=== PATIENT | male | born 1970 | race Caucasian/White ===

== ENCOUNTER 2023-06-23 02:59 | Inpatient (IN) | payer BC ==
[2023-06-23] MEDS ORDERED: ONDANSETRON 4 MG/2 ML VIAL ONE (03:36)
[2023-06-23] MEDS ORDERED: ACETAMINOPHEN INJECTION 100 ML IVPB ONE (03:36)
[2023-06-23] MEDS: morphine CARPU-JECT 4 MG/1 ML DISP.SYRIN IVPUSH ONE (04:09)
[2023-06-23] MEDS: SODIUM CHLORIDE 0.9% 500 ML INFUS.BAG IV ONE (04:10)
[2023-06-23] MEDS: ACETAMINOPHEN 1000 MG/100 ML BAG IVPB ONE (04:10)
[2023-06-23] MEDS: ONDANSETRON 4 MG/2 ML VIAL IVPUSH ONE (04:10)
[2023-06-23 04:18] LABS: HEMATOCRIT 43.3 % (35.4-49); HEMOGLOBIN 14.6 GM/dL (11.7-16.9); MCH 27.2 pg (25.7-33.7); MCHC 33.6 g/dl (32.0-35.9); MEAN CELL VOLUME 80.7 fl (80-96); MEAN PLT VOLUME 9.2 fl (7.5-11.1); PLATELET COUNT 246 10^3/uL (134-434); RBC 5.37 M/mm3 (4.00-5.60); RDW 12.9 % (11.9-15.9); WHITE BLOOD COUNT 4.8 K/mm3 (4.0-10.0)
[2023-06-23 04:30] LABS: INR 1.09 (0.83-1.09); PROTHROMBIN TIME (PATIENT) 12.3 SEC (9.7-13.0)
[2023-06-23 04:32] LABS: ACTIVATED PTT 26.5 SECONDS (25.2-36.5)
[2023-06-23 04:37] LABS: CHLORIDE 100 mmol/L (98-107); SODIUM 131 mmol/L (136-145)
[2023-06-23 04:39] LABS: CALCIUM 8.6 mg/dL (8.5-10.1)
[2023-06-23 04:40] LABS: ALBUMIN 3.2 g/dl (3.4-5.0); ANION GAP 5 mmol/L (4-13); BLOOD UREA NITROGEN 18.1 mg/dL (7-18); CO2 25 mmol/L (21-32); GLUCOSE,RANDOM 298 mg/dL (74-106); MAGNESIUM 1.7 mg/dL (1.8-2.4)
[2023-06-23 04:42] LABS: CREATININE 1.2 mg/dL (0.55-1.3); SGOT/AST 13 U/L (15-37)
[2023-06-23 04:43] LABS: SGPT/ALT 23 U/L (13-61)
[2023-06-23 04:44] LABS: BILIRUBIN,TOTAL 0.6 mg/dL (0.2-1); TOT PROT 7.1 g/dl (6.4-8.2)
[2023-06-23 04:45] LABS: ALK PHOS 77 U/L (45-117)
[2023-06-23] MEDS ORDERED: FAMOTIDINE 20 MG/50 ML IVPB 20 MG/50 ML MG IVPB ONE (04:53)
[2023-06-23] MEDS ORDERED: MAGNESIUM SULFATE IN WATER 2 GM/50 ML IVPB IVPB ONE (04:53)
[2023-06-23] MEDS: MAGNESIUM SULF 50% (8.12 MEQ/2 ML-1 GM VIAL) IVPB ONE (04:59)
[2023-06-23] MEDS: FAMOTIDINE 20 MG/50 ML IVPB 20 MG/50 ML MG IVPB ONE (05:00)
[2023-06-23 05:13] LABS: EPI CELLS 16 /uL (0-25.1); HYALINE CASTS 3 /uL (0-3.1); URINE APPEARANCE CLEAR; URINE BACTERIA 2 /uL (0-1359); URINE BILIRUBIN NEGATIVE (NEGATIVE); URINE COLOR DK YELLOW; URINE GLUCOSE (UA) 3+ (NEGATIVE); URINE KETONE TRACE (NEGATIVE); URINE LEUK ESTERASE NEGATIVE (NEGATIVE); URINE NITRITE NEGATIVE (NEGATIVE); URINE PROTEIN 3+ (NEGATIVE); URINE RBC 11 /uL (0-23.9); URINE UROBILINOGEN 0.2 mg/dL (0.2-1.0); URINE WBC 26 /uL (0-25.8)
[2023-06-23 06:26] LABS: ANISOCYTOSIS 2+; MACROCYTOSIS 0; OVALOCYTE 1+
[2023-06-23] MEDS ORDERED: ASPIRIN 81 MG CHEWABLE TABLETS ONE (08:07)
[2023-06-23] MEDS: ASPIRIN 81 MG CHEWABLE TABLETS PO ONE (08:08)
[2023-06-23] MEDS: DEXTROSE 5%-0.45% SALINE 1,000 ML IV SCH (09:19)
[2023-06-23 09:38] LABS: URINE BENZODIAZEPINES NEGATIVE (NEGATIVE)
[2023-06-23 09:39] LABS: METHADONE, UR NEGATIVE (NEGATIVE); PHENCYCLIDINE,URINE NEGATIVE (NEGATIVE); URINE BARBITURATES NEGATIVE (NEGATIVE)
[2023-06-23 09:40] LABS: URINE AMPHETAMINES NEGATIVE (NEGATIVE)
[2023-06-23 09:43] LABS: COCAINE, UR NEGATIVE (NEGATIVE); OPIATES, URI NEGATIVE (NEGATIVE)
[2023-06-23] MEDS ORDERED: CLOPIDOGREL BISULFATE 75 MG TABLET (FP) PO SCH (10:30)
[2023-06-23] MEDS ORDERED: ENOXAPARIN NA (PORCINE) 80 MG/0.8 ML DISP.SYRIN SQ SCH (10:30)
[2023-06-23] MEDS ORDERED: METOPROLOL TARTRATE 25 MG TABLET (FP) ONE (11:19)
[2023-06-23] MEDS ORDERED: CLOPIDOGREL BISULFATE 300 MG TABLET ONE (11:19)
[2023-06-23] MEDS ORDERED: INSULIN (NOVOLOG) ASPART 100 UNITS/ML 10ML VIAL ONE (11:30)
[2023-06-23] MEDS: LACTATED RINGERS SOLUTION 1,000 ML/1,000 ML INFUS.BAG IV SCH (11:34)
[2023-06-23] MEDS: INSULIN ASPART SLIDING SCALE (NOVOLOG) 1 VIAL SQ SCH (11:34)
[2023-06-23] MEDS: CLOPIDOGREL BISULFATE 300 MG TABLET PO ONE (11:34)
[2023-06-23] MEDS: METOPROLOL TARTRATE 25 MG TABLET (FP) PO SCH (11:34)
[2023-06-23] MEDS: ENOXAPARIN NA (PORCINE) 40 MG/0.4 ML DISP.SYRIN SQ SCH (11:35)
[2023-06-23] MEDS ORDERED: ATORVASTATIN CA 80 MG TABLET (FP) ONE (22:15)
[2023-06-23] MEDS ORDERED: ENOXAPARIN NA (PORCINE) 80 MG/0.8 ML DISP.SYRIN SQ ONE (22:16)
[2023-06-23] MEDS: ATORVASTATIN CA 80 MG TABLET (FP) PO SCH (22:19)
[2023-06-23] MEDS: ENOXAPARIN NA (PORCINE) 80 MG/0.8 ML DISP.SYRIN SQ SCH (22:19)
[2023-06-24 01:21] VITALS: BMI 25.7
[2023-06-24 06:27] VITALS: PULSE 98
[2023-06-24 07:27] LABS: HEMATOCRIT 35.4 % (35.4-49); HEMOGLOBIN 11.6 GM/dL (11.7-16.9); MCH 26.7 pg (25.7-33.7); MCHC 32.8 g/dl (32.0-35.9); MEAN CELL VOLUME 81.3 fl (80-96); MEAN PLT VOLUME 9.3 fl (7.5-11.1); PLATELET COUNT 224 10^3/uL (134-434); RBC 4.35 M/mm3 (4.00-5.60); RDW 12.6 % (11.9-15.9); WHITE BLOOD COUNT 6.3 K/mm3 (4.0-10.0)
[2023-06-24 07:50] LABS: POTASSIUM 3.9 mmol/L (3.5-5.1)
[2023-06-24 07:59] LABS: ALBUMIN 2.5 g/dl (3.4-5.0); CALCIUM 7.8 mg/dL (8.5-10.1); MAGNESIUM 1.9 mg/dL (1.8-2.4)
[2023-06-24 08:02] LABS: CREATININE 0.9 mg/dL (0.55-1.3); PHOSPHOROUS 2.6 mg/dL (2.5-4.9)
[2023-06-24 08:04] LABS: TOT PROT 5.7 g/dl (6.4-8.2)
[2023-06-24 08:46] LABS: ANISOCYTOSIS 3+; MACROCYTOSIS 0
[2023-06-24] MEDS: SODIUM CHLORIDE 1,000 ML IV SCH (09:34)
[2023-06-24] MEDS: CLOPIDOGREL BISULFATE 75 MG TABLET (FP) PO SCH (09:37)
[2023-06-24] MEDS: amLODIPine BESYLATE 10 MG TABLET (FP) PO SCH (09:37)
[2023-06-24] MEDS: LISINOPRIL 10 MG TABLET PO SCH (09:37)
[2023-06-24] MEDS: METOPROLOL TARTRATE 25 MG TABLET (FP) PO SCH (09:37)
[2023-06-24] MEDS: ASPIRIN COATED 81 MG TABLET.EC PO SCH (09:38)
[2023-06-24] MEDS: ENOXAPARIN NA (PORCINE) 80 MG/0.8 ML DISP.SYRIN SQ SCH (09:39)
[2023-06-24 11:28] VITALS: BP 133/90; RESP 16; TEMP 98.4
[2023-06-24] MEDS ORDERED: MAG HYDROX/AL HYDROX/SIMETH 30 ML UNIT-DOSE CUP PO PRN (13:31)
== END 2023-06-24 13:57 | disposition short-term general hospital (02) | DRG 282 ==
LOC: JER 02:59 → JERBED 09:58 → J4W 06-24 01:05
PROVIDERS: ADMIT Internal Medicine; ATTEND Internal Medicine
DX: I21.4 Non-ST elevation (NSTEMI) myocardial infarction (principal); I10 Essential (primary) hypertension; E78.5 Hyperlipidemia, unspecified; E11.9 Type 2 diabetes mellitus without complications; A08.8 Other specified intestinal infections
CPT/HCPCS: 0241U-QW; 36415; 71045-TC-FY; 74177-TC; 76705-TC; 80053; 80307; 81003; 82272; 82550; 82962; 83036; 83605; 83690; 83735; 84100; 84484; 84999; 85025; 85610; 85730; 87045; 87046; 87077; 87086; 87205; 93005; 93010; 93306-TC; 99285-25; J0131